=== PATIENT | female | born 1965 | race African-American/Black ===

== ENCOUNTER 2025-04-07 17:23 | Emergency (ER) | payer OTHER, SELFPAY ==
[2025-04-07] VITALS (11 sets, daily range): BP systolic 104–176; BP diastolic 55–111; PULSE 75–80; RESP 12–22; TEMP 36.8; O2SAT 95–100; BMI 25.4
--- NOTE | 2025-04-07 17:49 | DI.RAD.S_ITS ---
PROCEDURE: XR CHEST 1V INDICATIONS: suspected sepsis TECHNIQUE: One view of the chest was acquired. COMPARISON: None. FINDINGS: Surgical changes and devices: None. Lungs and pleura: Lungs are clear. No pleural effusions or pneumothorax. Mediastinum: Mediastinal contours appear normal. Heart size is mildly prominent. Bones and chest wall: No suspicious bony lesions. Overlying soft tissues appear unremarkable. IMPRESSION: No acute pulmonary process. Dictated by: Emma Rivas M.D. on 04/07/2025 at 19:33 Approved by: Emma Rivas M.D. on 04/07/2025 at 19:33
--- NOTE | 2025-04-07 17:49 | EKG_ITS ---
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
--- NOTE | 2025-04-07 17:50 | DI.RAD.S_ITS ---
PROCEDURE: XR TOE RT MIN 2V INDICATIONS: pain and swelling TECHNIQUE: 3 views of the 1st toe(s) acquired. COMPARISON: None. FINDINGS: Bones: There is osseous lucency and destruction at the tuft of the distal 1st phalanx. Soft tissues: No suspicious soft tissue densities. IMPRESSION: 1st distal tuft lucency highly suggestive of osteomyelitis. Dictated by: Emma Rivas M.D. on 04/07/2025 at 19:33 Approved by: Emma Rivas M.D. on 04/07/2025 at 19:34
[2025-04-07] MEDS: SODIUM CHLORIDE 0.9% 1,000 ML 1000 ML IV (18:05)
--- NOTE | 2025-04-07 18:20 | ED_ITS ---
HPI - General Adult General Chief complaint: Syncope Stated complaint: RT big toe ulceration , weakness , dizziness Time Seen by Provider: 04/07/25 17:59 Source: patient Mode of arrival: Ambulatory History of Present Illness HPI narrative: Patient is a diabetic who presents with recurrent episodes of syncope and dizziness. 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 Most recently, she experienced a syncopal episode at [facility], nearly falling but was caught by her boyfriend. The dizziness is described as a sensation of impending faint, not vertigo, and occurs unpredictably, including upon arrival to the ER. She denies chest pain, shortness of breath, or vision changes. Additionally, she has a chronic ulceration on the plantar aspect of her right great toe, previously attributed to ill-fitting shoes, with a history of similar issues in the past. She received a gram of ceftriaxone at a prior facility for concern of possible infection or osteomyelitis. She did not take her usual evening dose of Lantus insulin last night. She denies any known kidney problems, though was told her creatinine was slightly elevated. Pertinent ROS: Positive for dizziness, syncope, and right great toe ulcer. Denies chest pain, shortness of breath, vision changes, and significant edema or erythema elsewhere. Medications: Lantus insulin 32 units every evening (missed last evening), received ceftriaxone 1g at outside facility. Past Medical History: Diabetes mellitus. Surgical History: None reported. Related Data Allergies Allergy/AdvReac Type Severity Reaction Status Date / Time No Known Drug Allergies Allergy Verified 04/07/25 17:46 Review of Systems Review of Systems ROS Unobtainable: All systems reviewed & are unremarkable except as noted in HPI and below Patient History Social History Smoking Status: Never smoker Smoking Status: Never smoker Exam Narrative Exam Narrative: General: Comfortable, no acute distress. Skin: Ulceration to the plantar aspect of the right great toe with surrounding erythema and mild purulent drainage; no significant edema or erythema of the remainder of the foot or leg; good turgor, no rash, unusual bruising or prominent lesions elsewhere. Head: Normocephalic, atraumatic HEENT: Conjunctiva clear, EOM intact, PERRL, mucous membranes moist. Neck: Supple, normal ROM Heart: Regular rate and rhythm, no murmur or gallop or rubs Lungs: Clear to auscultation. No rales, rhonchi, or wheezes. Abdomen: Soft and nontender. Bowel sounds normal. No mass or hernia Back: Spine normal without deformity or tenderness, no CVA tenderness Extremities: No significant abnormalities of the foot or leg aside from the described ulcer. No deformities, edema. Peripheral pulses intact. Neurologic: CN 2-12 normal. Normal sensation and motor exam. Psychiatric: Oriented X3. Normal mood and affect. Initial Vital Signs Initial Vital Signs: Vital Signs Temperature 98.2 F 04/07/25 17:41 Pulse Rate 80 04/07/25 17:41 Respiratory Rate 18 04/07/25 17:41 Blood Pressure 104/58 L 04/07/25 17:41 Pulse Oximetry 96 04/07/25 17:41 Oxygen Delivery Method Room Air 04/07/25 17:41 Course Orders Ordered: ED Orders 04/07/25 17:49 XR chest 1V Stat EKG-12 Lead Stat RT Consult Eval and Treat NOW 04/07/25 17:50 XR toe RT min 2V Stat 04/07/25 18:18 Complete Blood Count AUTO DIFF Stat Comprehensive Metabolic Panel Stat Lactate (Lactic Acid) Stat Lipase Stat Procalcitonin Stat 04/07/25 20:52 Blood Culture Stat PTT Partial Thromboplastin [place] Stat Prothrombin Time INR Stat 04/08/25 00:36 Urine Culture Stat Urine Microscopic Stat Ondansetron HCl (Ondansetron 4 Mg/2 Ml Inj) 4 mg IV NOW PRN PRN Reason: Nausea And Vomiting Ondansetron HCl (Ondansetron 4 Mg Odt) 4 mg PO NOW PRN PRN Reason: Nausea And Vomiting Vancomycin HCl (Vancomycin Per Pharmacy) 1 request MISC NOW PRN PRN Reason: infection Discontinued Medications Sodium Chloride (Normal Saline 0.9%) 1,000 mls @ 1,000 mls/hr IV BOLUS ONE Stop: 04/07/25 18:45 Last Infusion: 04/07/25 20:05 Dose: Infused Documented By: Admin: 04/07/25 18:05 Dose: 1,000 mls/hr Documented By: SARAH Piperacillin Sod/Tazobactam (Sod 4.5 gm/ Sodium Chloride) 100 mls @ 200 mls/hr IV NOW ONE Stop: 04/07/25 20:32 Last Infusion: 04/07/25 21:33 Dose: Infused Documented By: Admin: 04/07/25 20:58 Dose: 200 mls/hr Documented By: SHERI Vancomycin HCl/Dextrose (Vancomycin) 1,500 mg in 300 mls @ 200 mls/hr IV NOW ONE Stop: 04/07/25 22:14 Last Infusion: 04/07/25 23:20 Dose: Infused Documented By: Admin: 04/07/25 21:32 Dose: 200 mls/hr Documented By: CAROLYN Vital Signs Vital signs: Vital Signs - 8 hr 04/07/25 20:59 04/07/25 21:00 04/07/25 21:00 Pulse Rate 80 80 Respiratory Rate 21 19 Blood Pressure 176/70 H Pulse Oximetry 99 100 04/07/25 21:01 04/07/25 21:01 04/07/25 21:30 Pulse Rate 78 78 Respiratory Rate 15 22 Blood Pressure 164/71 H Pulse Oximetry 100 100 04/07/25 21:31 04/07/25 21:31 04/07/25 22:00 Pulse Rate 77 Respiratory Rate 20 Blood Pressure 154/65 H 156/111 H Pulse Oximetry 100 04/07/25 22:00 04/07/25 22:30 04/07/25 22:31 Pulse Rate 79 80 Respiratory Rate 12 15 Blood Pressure 148/63 H Pulse Oximetry 99 99 04/07/25 22:31 04/07/25 23:00 04/07/25 23:00 Pulse Rate 79 78 Respiratory Rate 14 16 Blood Pressure 123/56 L Pulse Oximetry 98 95 04/07/25 23:30 04/07/25 23:30 04/08/25 00:00 Pulse Rate 75 77 Respiratory Rate 17 18 Blood Pressure 108/55 L Pulse Oximetry 95 96 04/08/25 00:01 04/08/25 00:01 Pulse Rate 77 Respiratory Rate 17 Blood Pressure 129/59 L Pulse Oximetry 98 Medical Decision Making Lab Data Lab results narrative: I reviewed the patient's laboratory evaluation which is overall reassuring no significant leukocytosis, patient's hemoglobin is 10 unclear baseline. Patient's kidney function appears to be intact, she does have elevated procalcitonin likely secondary to her infection in the right great toe 04/07/25 18:18 04/07/25 18:18 Labs: Lab Results 04/07/25 04/07/2504/08/25 Range/Units 18:18 20:52 00:36 WBC 11.6 H (4.5-11.0) X10^3/uL RBC 3.43 L (4.0-5.2) X10^6/uL Hgb 10.0 L (12.0-16.0) g/dL Hct 30.7 L (36-46) % MCV 89.4 (80-100) fL MCH 29.1 (26-34) PG MCHC 32.6 (30-36) % RDW 14.2 (11.6-14.8) % Plt Count 220 (150-400) X10^3/uL Neut % (Auto) 67.9 (50-75) % Lymph % (Auto) 21.2 L (25-40) % [place] % (Auto) 7.0 (3-14) % Eos % (Auto) 2.7 (2-4) % Baso % (Auto) 1.2 (0-2) % Neut # (Auto) 7900 H (2507-2007) /uL Lymph # (Auto) 2500 (8367-3066) /uL [place] # (Auto) 800 (0-900) /uL Eos # (Auto) 300 (0-450) /uL Baso # (Auto) 100 (0-100) /uL PT 13.4 H (9.4-12.5) SECONDS INR 1.2 (0.9-1.3) APTT 33 (25.1-36.5) SECONDS Sodium 143 (137-145) mmol/L Potassium 3.3 L (3.4-5.1) mmol/L Chloride 102 (98-107) mmol/L Carbon Dioxide 31 (22-32) mmol/L BUN 18 H (7-17) mg/dL Creatinine 1.37 H (0.52-1.04) mg/dL Estimated GFR 44 L (>60) mL/min BUN/Creatinine Ratio 13.1 (6-22) Glucose 130 H (70-99) mg/dL Lactate 0.9 (0.7-2.1) mmol/L Calcium 9.4 (8.4-10.2) mg/dL Total Bilirubin 0.7 (0.2-1.3) mg/dL AST 32 (14-36) IU/L ALT 27 (<35) IU/L Alkaline Phosphatase 112 (38-126) U/L Total Protein 8.4 H (6.3-8.2) g/dL Albumin 4.2 (3.5-5.0) g/dL Globulin 4.2 H (1.7-4.1) g/dL Albumin/Globulin Ratio 1.0 (1.0-2.8) Lipase 134 (23-300) U/L Procalcitonin 0.136 (<0.5) ng/mL Urine RBC None seen (0-5/HPF) Urine WBC 5-10/hpf H (0-5/HPF) Ur Squamous Epith Cells 0-1 /hpf (0-5/HPF) Urine Bacteria Moderate (10-30) H (None) Ur Culture Indicated? Cult not indicated Vol Urine Centrifuged 10ml (spun) Urine Dip Bedside Urine Glucose Negative Bedside Urine Bilirubin - Negative Bedside Urine Ketone - Negative Urine Specific [place] 1.010 Bedside Urine Occult Blood +/- Bedside Urine pH 7.5 Bedside Urine Protein + 30 Bedside Urine Urobilinogen - Negative Bedside Urine Nitrite - Negative Bedside Urine Leukocytes +++ 500 Esterase Point of care testing: Urine Dip Bedside Urine Glucose Negative Bedside Urine Bilirubin - Negative Bedside Urine Ketone - Negative Urine Specific [place] 1.010 Bedside Urine Occult Blood +/- Bedside Urine pH 7.5 Bedside Urine Protein + 30 Bedside Urine Urobilinogen - Negative Bedside Urine Nitrite - Negative Bedside Urine Leukocytes +++ 500 Esterase Imaging Data Extremity x-ray #1: My Impression: No obvious fracture, concern for lucency may be representing fracture Radiologist's Impression: IMPRESSION: 1st distal tuft lucency highly suggestive of osteomyelitis. ECG Data Interpretation: Patient's EKG shows normal sinus rhythm without significant arrhythmia, there is no significant prolonged [place] interval or QTC prolongation I do not see any delta wave I do not see any ischemic findings on my evaluation of EKG. MDM Narrative Medical decision making narrative: INITIAL EVALUATION AND PLAN: - Workup for syncope/dizziness: blood counts, EKG, additional labs. - X-ray of right foot to evaluate for possible osteomyelitis. - Monitor laboratory results. - Consider further infectious workup and/or podiatry referral for possible MRI if concern for osteomyelitis persists. - Assess need for continued antibiotics or admission based on findings. ED Course: The patient presented with recurrent episodes of syncope and dizziness, along with a chronic ulceration on the plantar aspect of her right great toe. Initial evaluation included blood counts, EKG, and additional labs to investigate the cause of syncope and dizziness. An X-ray of the right foot was performed to assess for possible osteomyelitis. Laboratory results, including creatinine levels, were monitored. The plan included consideration of further infectious workup and potential podiatry referral for MRI if osteomyelitis remained a concern. The need for continued antibiotics or admission was to be determined based on findings. Differential Diagnoses: Syncope, Possible osteomyelitis, Cardiac arrhythmia, Orthostatic hypotension, Hypoglycemia, Sepsis, Peripheral arterial disease Complexity of Problems Addressed: The patient presents with recurrent syncope and dizziness, which are undiagnosed new problems with uncertain prognosis and could pose a significant threat to life without treatment. Additionally, the chronic ulceration of the right great toe with surrounding erythema and purulent drainage raises concern for possible osteomyelitis, a condition with systemic implications and high morbidity risk if untreated. The combination of these issues, including the potential for life- threatening complications from syncope and the infectious risk associated with the ulcer, significantly increases the complexity of medical decision-making. Reviewed Notes: - Outside Hospital Clinic Records: Patient received ceftriaxone 1g at a prior facility for concern of possible infection or osteomyelitis. -Discussed the case with Dr. Strong of the podiatry team who recommends transfer to [facility] for potential amputation, recommends vanc Zosyn antibiotics in the meantime. -Discussed the case with Dr. Haque the hospitalist at [facility] who accepts patient for transfer to their facility for ongoing IV antibiotics and potential surgical intervention on toe ulceration/osteomyelitis -lower suspicion for cardiac syncope however may need to be on cardiac telemetry while admitted for ongoing management or long-term corner block cutter. Patient's EKG reassuring without signs of arrhythmia but may benefit from cardiac consultation once admitted. Discharge Plan Departure Patient Disposition: [facility] Clinical Impression: Osteomyelitis
[2025-04-07 18:38] LABS: Lactate (Lactic Acid) 0.9 mmol/L (0.7-2.1)
[2025-04-07 18:39] LABS: Alanine Aminotransferase 27 IU/L (<35); Albumin 4.2 g/dL (3.5-5.0); Alkaline Phosphatase 112 U/L (38-126); Aspartate Aminotransferase 32 IU/L (14-36); BUN Creatinine Ratio 13.1 (6-22); Bilirubin Total 0.7 mg/dL (0.2-1.3); Blood Urea Nitrogen 18 mg/dL (7-17); Calcium 9.4 mg/dL (8.4-10.2); Carbon Dioxide 31 mmol/L (22-32); Chloride 102 mmol/L (98-107); Estimated Glomerular Filt Rate 44 mL/min (>60); Globulin 4.2 g/dL (1.7-4.1); Glucose 130 mg/dL (70-99); HEMOLYSIS < 15 (0-50); Lipase 134 U/L (23-300); Potassium 3.3 mmol/L (3.4-5.1); Sodium 143 mmol/L (137-145); Total Protein 8.4 g/dL (6.3-8.2)
[2025-04-07 18:43] LABS: Add Manual Diff / Slide Review NO; Basophils Absolute Auto 100 /uL (0-100); Basophils Percent Auto 1.2 % (0-2); Eosinophils Absolute Auto 300 /uL (0-450); Eosinophils Percent Auto 2.7 % (2-4); Hematocrit 30.7 % (36-46); Lymphocytes Absolute Auto 2500 /uL (1100-4500); Lymphocytes Percent Auto 21.2 % (25-40); Mean Corpuscular HGB Conc 32.6 % (30-36); Mean Corpuscular Hemoglobin 29.1 PG (26-34); Mean Corpuscular Volume 89.4 fL (80-100); Monocytes Absolute Auto 800 /uL (0-900); Neutrophils Absolute Auto 7900 /uL (1500-7000); Neutrophils Percent Auto 67.9 % (50-75); Platelet Count 220 X10^3/uL (150-400); Red Blood Cell Count 3.43 X10^6/uL (4.0-5.2); Red Cell Distribution Width 14.2 % (11.6-14.8); White Blood Cell Count 11.6 X10^3/uL (4.5-11.0)
[2025-04-07 18:56] LABS: Procalcitonin 0.136 ng/mL (<0.5)
[2025-04-07] MEDS: PIPERACILLIN/TAZO 4.5 GM in SODIUM CHLORIDE 0.9% 100 ML IV (20:58)
[2025-04-07 21:10] LABS: INR 1.2 (0.9-1.3); Prothrombin Time 13.4 SECONDS (9.4-12.5)
[2025-04-07 21:13] LABS: PTT Partial Thromboplastin Tim 33 SECONDS (25.1-36.5)
--- NOTE | 2025-04-07 21:21 | PC.NURSE ---
pt had a syncopal episode on friday and then almost passed out yesterday.
[2025-04-07] MEDS: VANCOMYCIN 1,500 MG/300 ML PIGGYBACK 200 MG IV (21:32)
[2025-04-08] VITALS: PULSE 77; RESP 18; O2SAT 96
[2025-04-08 00:01] VITALS: BP 129/59; PULSE 77; RESP 17; O2SAT 98
--- NOTE | 2025-04-08 01:01 | PC.NURSE ---
paged [facility] nursing sup at [address] Strong (podiatry) accepts and would like this pt to be transferred to [facility]. 2200: waiting or hospitalist 0100: no longer any beds, Hospitalist will not consult.
[2025-04-08 01:15] LABS: Bacteria Urine Moderate (10-30); RBC Urine None Seen (0-5/HPF); Squamous Epithelial Cell Urine 0-1 /HPF (0-5/HPF); Urine Volume 10mL (spun); WBC Urine 5-10/HPF (0-5/HPF)
[2025-04-08 01:16] LABS: Culture Indicated Urine Cult Not Indicated
[2025-04-08] MEDS: GABAPENTIN 600 MG TABLET 1200 MG PO (02:58)
[2025-04-08 06:19] VITALS: O2SAT 97
[2025-04-08 06:20] VITALS: BP 145/68; PULSE 79; O2SAT 98
[2025-04-08 06:21] VITALS: BP 145/68; PULSE 79; RESP 15; O2SAT 98
[2025-04-08] MEDS: ONDANSETRON 4 MG ODT PO (06:53)
[2025-04-08 06:55] VITALS: BP 164/72; PULSE 75; RESP 18; O2SAT 97
== END 2025-04-08 07:08 | disposition short-term general hospital (02) ==
PROVIDERS: Emergency Medicine; Emergency Provider Emergency Medicine
DX: M86.9 Osteomyelitis, unspecified (principal); R42 Dizziness and giddiness
CPT/HCPCS: 71045; 73660; 80053; 81003; 81015; 82962; 83605; 83690; 84145; 85025; 85610; 85730; 87040; 87086; 93005; 96361; 96365; 96366; 96367; 96375; 99284; J2543